=== PATIENT | female | born 1965 | race Caucasian/White ===

== ENCOUNTER 2018-07-25 15:50 | Emergency (ER) | payer OTHER ==
[~2018-07-25] VITALS: Ht 165.1 cm; Wt 68.0 kg
== END 2018-07-25 19:29 | disposition home or self-care (01) ==
LOC: ER 15:50
DX: R07.89 Other chest pain (principal); M94.0 Chondrocostal junction syndrome [Tietze]; K29.60 Other gastritis without bleeding

== ENCOUNTER 2021-10-12 08:54 | Outpatient (CLI) | payer OTHER | END 2021-10-12 08:57 | disposition home or self-care (01) | LOC: TOM 08:54 | PROVIDERS: ATTEND Specialist | DX: R89.1 Abnormal level of hormones in specimens from other organs, systems and tissues (principal); R79.89 Other specified abnormal findings of blood chemistry; R87.1 Abnormal level of hormones in specimens from female genital organs ==